=== PATIENT | female | born 1945 | race Caucasian/White ===

== ENCOUNTER 2017-04-08 09:09 | Emergency (ER) | payer OTHER ==
[2017-04-08 09:17] VITALS: BP 153/70; PULSE 71; RESP 16; TEMP 98.6; O2SAT 97
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
== END 2017-04-08 10:29 | disposition home or self-care (01) ==
DX: S16.1XXA Strain of muscle, fascia and tendon at neck level, initial encounter (principal); S39.92XA Unspecified injury of lower back, initial encounter; S29.9XXA Unspecified injury of thorax, initial encounter; S59.912A Unspecified injury of left forearm, initial encounter; S59.911A Unspecified injury of right forearm, initial encounter; V49.40XA Driver injured in collision with unspecified motor vehicles in traffic accident, initial encounter; Y92.481 Parking lot as the place of occurrence of the external cause; Y99.8 Other external cause status; Y93.89 Activity, other specified

== ENCOUNTER 2017-04-27 06:49 | Emergency (ER) | payer OTHER ==
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
[2017-04-27 07:38] LABS: PLATELET COUNT 196 10^3/uL (150-400)
[2017-04-27 07:49] LABS: INR 0.98 (0.83-1.16); PROTIME(PATIENT) 13.2 SEC (12.0-15.0)
[2017-04-27 10:01] VITALS: RESP 18
[2017-04-27 10:18] VITALS: PULSE 69; TEMP 98.4
[2017-04-27 10:36] VITALS: BP 142/76; O2SAT 94
== END 2017-04-27 10:34 | disposition home or self-care (01) ==
DX: M54.2 Cervicalgia (principal); Z87.891 Personal history of nicotine dependence